=== PATIENT | male | born 1985 ===

== ENCOUNTER 2018-11-06 17:04 | Emergency (ER) | payer MEDICAID ==
[~2018-11-06] VITALS: Ht 185.4 cm; Wt 83.9 kg
[2018-11-06] MEDS ORDERED: AMPH15TA2 PO (17:35)
--- NOTE | 2018-11-06 18:07 | NUR ---
PATIENT WAS SEEN BY MD. ABRASION ON HAND WAS CLEANSED WITH STERILE SALINE.
--- NOTE | 2018-11-06 18:58 | NUR ---
HAND OFF REPORT GIVEN TO RAND TAN.
[2018-11-06 19:45] VITALS: BP 108/78
--- NOTE | 2018-11-06 19:45 | NUR ---
Patient discharged to home in stable conditon. Written and verbal after care instructions given. Patient verbalizes understanding of instructions.
== END 2018-11-06 19:46 | disposition home or self-care (01) ==
LOC: ER 17:07
DX: S61.412A Laceration without foreign body of left hand, initial encounter (principal); S06.0X0A Concussion without loss of consciousness, initial encounter; S16.1XXA Strain of muscle, fascia and tendon at neck level, initial encounter; Z79.899 Other long term (current) drug therapy; V49.49XA Driver injured in collision with other motor vehicles in traffic accident, initial encounter; Y93.89 Activity, other specified; Y92.410 Unspecified street and highway as the place of occurrence of the external cause; Y99.8 Other external cause status
CPT/HCPCS: 70450; 72125; 73130; A4663